=== PATIENT | male | born 1930 | race Two or more races ===

== ENCOUNTER 2017-11-24 08:01 | Outpatient (CLI) | payer MEDICARE ==
[~2017-11-24 08:01] MED LIST: METFORMIN HCL500 M1 ORAL; ZANTAC150 MG ORAL
[2017-11-24 10:02] VITALS: BP 135/61
--- NOTE | 2017-11-24 10:19 | GI Progress Note ---
Assessment/Plan Problems: (1) Encounter for diagnostic endoscopy ICD Codes: Z01.818 - Encounter for other preprocedural examination SNOMED: 780553464, [id number] Status: stable Status Narrative Seen with Dr. Mcneil. Assessment/Plan EGD WITH BIOPSY / COLONOSCOPY Post-op Diagnosis: SEVERE GASTRITIS ,HIATAL HERNIA NORMAL COLON CHAVA MARTÍNEZ - May 07, 2017 12:45 Plan: SB Capsule endoscopy today. RTC tomorrow Seen with Dr. Mcneil. Thank you for this patient referral. Subjective Gastrointestinal/Abdominal: Reports: no symptoms Objective Last 24 Hour Vital Signs Date Time Temp Pulse Resp B/P (MAP) Pulse Ox O2 Delivery O2 Flow Rate FiO2 11/24/17 10:02 97.2 69 16 135/61 97 97.2 General Appearance: WD/WN, no apparent distress, alert Cardiovascular: normal rate Respiratory/Chest: normal breath sounds, no respiratory distress Abdominal Exam: normal bowel sounds, non tender, soft Extremities: normal range of motion, non-tender Shanique Crump N.P. Nov 24, 2017 10:19
--- NOTE | 2017-12-01 17:30 | Procedure Note ---
DATE OF PROCEDURE: 11/24/2017 SURGEON: Job Mcneil M.D. PROCEDURE: Capsule endoscopy. INDICATION: 1. Anemia. 2. Abdominal pain. The procedure, risks, benefits, and possible consequences, including hemorrhage, aspiration, perforation and infection, and alternative treatments, were explained to the patient/legal guardian by Dr. Job Mcneil and the patient/legal guardian understood and accepted these risks. DESCRIPTION OF PROCEDURE: The patient swallowed the camera. The camera spent 19 minutes in the stomach before entering the small intestine. The patient had a very rapid transient time through the small intestine. The capsule spent only 1 hour 28 minutes in the small intestine before entering the colon. Images of the stomach showed evidence of gastritis. On the image of 20 minutes and 26 seconds, we saw an ulcer roughly about 1 to 1.5 cm in the duodenum, seems to be duodenal bulb. Also there were lot of other small ulcers around it, but this was biggest one and there is a little bit of clot sitting around this ulcer most probably the cause of bleeding. The rest of the small intestinal mucosa grossly within normal limits. On the colon, we were able to see one AVM in the colon, but there is no blood in the colon at this time. SUMMARY OF FINDINGS: 1. Rapid transient to the small intestine, so exam is limited. 2. About 1 to 1.5 ulcer in duodenal bulb with some other shallow ulcerations around it. 3. Gastritis. 4. One colonic AVM. RECOMMENDATIONS: Discussed with Dr. Whiting, the referring physician. The patient most probably will need to be treated for duodenal ulcer and have a repeat endoscopy to document clearance. If the patient shows signs and symptoms of bleeding, we might need repeat colonoscopy and cauterization of the AVM if needed. I want to thank Dr. Whiting for this kind referral. Job Mcneil M.D. DR: Gunner JOB#: [id number] CC: Edouard Whiting M.D.; Fax#: [phone]
== END 2017-11-24 08:35 | disposition home or self-care (01) ==
LOC: PAN 08:01
DX: Z01.818 Encounter for other preprocedural examination (principal)